=== PATIENT | female | born 1985 | race Two or more races ===

== ENCOUNTER 2017-04-23 08:44 | Emergency (ER) | payer SELFPAY ==
[~2017-04-23] VITALS: Ht 157.5 cm; Wt 47.6 kg
[2017-04-23 08:57] VITALS: BP 136/88
[2017-04-23] MEDS ORDERED: Morphine Sulfate 4mg/ml Inj IM ONE (09:15)
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
[2017-04-23] MEDS ORDERED: IBUPROFEN600 MG ORAL (10:30)
[2017-04-23] MEDS ORDERED: ACETAMINOPHEN-1 EAC1 ORAL (10:30)
[2017-04-23] MEDS ORDERED: CYCLOBENZAPRINE10 MG ORAL (10:30)
[2017-04-23 10:52] VITALS: BP 135/88
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
== END 2017-04-23 10:53 | disposition home or self-care (01) ==
LOC: EMR 09:05
DX: R07.89 Other chest pain (principal); S20.211A Contusion of right front wall of thorax, initial encounter; V49.9XXA Car occupant (driver) (passenger) injured in unspecified traffic accident, initial encounter; Y92.410 Unspecified street and highway as the place of occurrence of the external cause
CPT/HCPCS: 71101; 96372; 99284; J2270